=== PATIENT | male | born 1980 | race Caucasian/White ===

== ENCOUNTER 2024-09-23 15:39 | Emergency (ER) | payer BC, SELFPAY ==
[2024-09-23 15:41] VITALS: BP 122/85
[2024-09-23] MEDS: MOTRIN 600 MG PO (17:23)
--- NOTE | 2024-09-23 20:15 | ED.GENMED ---
History of Present Illness
General
Chief Complaint: Musculo-Skeletal Complaint
Source: patient
Exam Limitations: none
Time Seen by Provider: 09/23/24 16:53
Nursing documentation reviewed up to this point in time: agreed with
History of Present Illness
History of Present Illness:
Patient is a 44-year-old male presenting to the emergency department with left foot injury. Patient reports that he was walking down the stairs when he accidentally stepped on his dogs bone at the bottom of the stairs twisting his left foot. He
noticed bruising and swelling which appeared on left foot very quickly following injury. Denies any numbness/tingling in left foot. Patient denies any pain in left ankle or left knee. He has been afraid to bear weight on foot since and presented to
the emergency department for evaluation.
No other injuries sustained.
Past History
Past History
ED Past Medical History: None and Other (Previous hernia surgery, thyroid cancer status post thyroidectomy and I-131)
ED Past Surgical History: None
Social History
Tobacco: Non-smoker
Alcohol: Occasional
Personal:
Living: with family
Employment: Employed
Family History
Family History: Other (He has a mother and a sister with kidney stones)
Review of Systems
Review of Systems
Allergies reviewed?: Yes
All Other Systems: ROS reviewed and negative except as documented in HPI and ROS
Phy Exam
Physical Exam
Physical Exam:
Vitals: Patient's vital signs are stable. Afebrile
General: Patient is well appearing, no acute distress
Skin: Warm and dry, no rashes or lesions
Head: Normocephalic, atraumatic
Throat: Protecting airway
Neck: Normal ROM, no cervical spine tenderness
Cardiac: Regular rate
Pulm: No apparent respiratory distress
Abdomen: Nondistended
Extremities: Tenderness noted to left lateral midfoot with area of notable edema and ecchymoses. Mild tenderness over base of left 5th metatarsal. No tenderness of calcaneus, left lateral or medial malleolus. No tenderness to head of left fibula.
Full ROM in left knee without pain. Achilles intact and nontender. Left DP pulse palpable with normal cap refill. Sensation fully intact.
Neuro: Grossly intact
Psychiatric: Normal affect.
Course
Orders/Labs/Results
Orders:
Orders
09/23/24 15:42
CR Foot - Left Min 3 Views Urgent
Comment:
Reason For Exam: Injury
09/23/24 17:12
Ibuprofen [Motrin] 600 mg PO NOW STA
09/23/24 18:01
boot [Ortho Boot Left- Treatment] ONCE
Short or tall?: Short
Vital Signs
Initial and Last Documented VS:
Initial Vital Signs
Temp Pulse Resp BP Pulse Ox
98.1 F 82 16 122/85 98
09/23/24 15:41 09/23/24 15:41 09/23/24 15:41 09/23/24 15:41 09/23/24 15:41
Last Documented Vital Signs
Temp Pulse Resp BP Pulse Ox
98.1 F 82 16 122/85 98
09/23/24 15:41 09/23/24 15:41 09/23/24 15:41 09/23/24 15:41 09/23/24 15:41
MDM/Problems Addressed
Differential Diagnosis Includes:
Not limited to: foot sprain, foot fracture, Valencia fracture, lisfranc injury, etc
MDM/Problems Addressed:
44 year old male presenting with left foot injury sustained just prior to arrival. Vitals stable. Physical exam as above. Xray of left foot without any fracture, specifically no fracture at base of fifth metatarsal visualized by myself or on
official read by radiology. Suspect likely foot sprain. Will place patient in short ortho boot. Outpatient ortho f/u recommended to patient. Advised rest, ice, compression, elevation. Patient provided copy of xray report. Return precautions
discussed. Patient stable for discharge - verbalized understanding.
Chronic conditions affecting care:
N/A
Acute Exacerbation and/or Progression of Chronic Illness:
N/A
*Radiology
Radiology exam reviewed: preliminary read by ED provider (xray of left foot reviewed by me - no acute fracture) and radiology read reviewed
*Pulse Oximetry
Patient hypoxic: no
*EKG
Interpreted by ED Provider?: NA
*Route Process Administrator Interpretation
Rate: Route Process Administrator- N/A
*Critical Care Note
Total Time (30-74mins, 75-104mins- exclusive of procedures): Not Applicable
ED Attending Note
-
Portions of this chart may have been created with voice recognition software.� Occasional wrong word or��sound alike� substitutions may have occurred due to the inherent limitations of voice recognition software.
Discharge Plan
Departure
Patient Disposition: Home (Routine Discharge)
Date of Disposition: 09/23/24
Time of Disposition: 18:01
Patient with high blood pressure during this ER visit?: No
Condition: Good
Covid-19: Not Applicable
Discharge Problem:
Injury of left foot
Instructions: Foot Sprain ED
Prescriptions:
No Action
levothyroxine 200 MCG tablet
200 mcg PO DAILY
temazepam 15 MG capsule
15 mg PO HSPRN PRN (Reason: sleep)
Patient Comments:
03/06/2021: last filled 02/03/21, 30 tabs for 30 days from [id number]
Taken w/ 30mg = 45mg
temazepam [Restoril] 30 MG capsule
30 mg PO HSPRN PRN (Reason: sleep)
Patient Comments:
03/06/2021: last filled 02/03/21, 30 tabs for 30 days from [id number]
Taken w/ 15mg = 45mg
acetaminophen [Tylenol Extra Strength] 500 MG tablet
1,000 mg PO Q6HPRN PRN (Reason: mild pain) Qty: 1 0RF
ibuprofen 200 MG tablet
400 - 600 mg PO Q6HPRN PRN (Reason: moderate pain) Qty: 1 0RF
oxycodone 5 MG tablet
5 mg PO Q4HPRN PRN (Reason: breakthrough/severe pain) Qty: 7 0RF
Referrals:
Nelson Oliver MD [Active] - Next open appointment
NONE,* [Family Provider] -
Activity Restrictions/Additional Instructions:
Return to the emergency department with any numbness/tingling in left foot, intractable pain, worsening in current symptoms, or any other concerns
-As discussed�your x-ray in the emergency department showed no evidence of fracture. It is possibly sustained a left foot sprain.
-Keep left foot in boot and weight-bear as tolerated. It is important to ice and elevate left foot frequently over the next few days to week. Take Motrin as needed to for pain.
-Follow-up with orthopedics for further evaluation/management as needed. Contact information has been provided for you above. You may require further imaging
Monitor your symptoms closely and return to the emergency department with any acute worsening/new symptoms or any other concerns
Interventions
Interventions:
*Risk Screen - Suicide Last Done: 09/23/24 16:34
*General Assessment Last Done: 09/23/24 16:34
*Neglect/Abuse Screening Last Done: 09/23/24 16:34
*ED- Fall Risk Assessment Last Done: 09/23/24 16:34
*Nursing Disposition Last Done: 09/23/24 18:31
ED-Musculoskeletal Assessment Last Done: 09/23/24 16:34
Discharge Date and Time
Discharge Date/Time: 09/23/24 18:35
Print Language: INDONESIAN
== END 2024-09-23 18:35 | disposition home or self-care (01) ==
LOC: EMR 15:39
PROVIDERS: EMERGENCY PHYSICIAN Student in an Organized Health Care Education/Training Program
DX: S90.32XA Contusion of left foot, initial encounter (principal); X50.1XXA Overexertion from prolonged static or awkward postures, initial encounter; W22.8XXA Striking against or struck by other objects, initial encounter; Z85.850 Personal history of malignant neoplasm of thyroid; Z87.891 Personal history of nicotine dependence
CPT/HCPCS: 99283; 29515; 73630